=== PATIENT | male | born 1955 ===

== ENCOUNTER → 2022-12-11 | Day surgery (SDC) | payer OTHER | END | disposition home or self-care (01) | LOC: ADM 12-06 13:15 → AMB-ENDOS 08:52 | PROVIDERS: ATTEND Colon & Rectal Surgery | DX: D12.2 Benign neoplasm of ascending colon (principal); D12.3 Benign neoplasm of transverse colon; K57.30 Diverticulosis of large intestine without perforation or abscess without bleeding; Z20.822 Contact with and (suspected) exposure to COVID-19 ==